=== PATIENT | male | born 1995 | race Caucasian/White ===

== ENCOUNTER 2019-06-21 07:13 | Emergency (ER) | payer OTHER, SELFPAY ==
--- NOTE | ~2019-06-21 | CT_ITS ---
EXAMINATION: CT abdomen pelvis w con INDICATION: Right lower quadrant pain and nausea TECHNIQUE: Computed tomographic images of the abdomen and pelvis were obtained after the administrati on of 100 cc of Omnipaque 350 intravenous contrast. The dose-length product (DLP) was 328.40 mGy-cm. Automated exposure control and iterative reconstruction technique were employed. COMPARISON: None available FINDINGS: The lung bases are clear. The heart size is normal. The liver, spleen, pancreas, gallbladde r, and adrenal glands are normal. There appears to be subtle patchy perfusion of the right kidney com pared to the left with urothelial enhancement of the proximal right ureter. There is a 1 mm stone in the urinary bladder. No pathologically enlarged abdominal or pelvic lymph nodes are identified. There is no free intraperitoneal gas or evidence of bowel obstruction. There are appendicoliths in the dis maynor appendix. The appendix measures up to 7 mm. No definite periappendiceal fat stranding is identifi ed. There are no pelvic fluid collections. IMPRESSION: 1. 1 mm stone in the bladder. Right-sided kidney and ureter findings likely reflect recent passage of stone. 2. Appendicoliths of the appendix without findings of acute appendicitis. These findings were discussed with Dr. Thad Olvera MD in the Emergency Department at 0839 rafita rs on 06/21/2019. Reviewed, dictated and finalized at location A. COUNSELOR IMPRESSION: 1. 1 mm stone in the bladder. Right-sided kidney and ureter findings likely ref lect recent passage of stone. 2. Appendicoliths of the appendix without findings of acute appendicitis. These findings were discussed with Dr. Thad Olvera MD in the Emergency Department at 0839 hours on 06/21/2019.
[2019-06-21 07:25] VITALS: BP 151/80; PULSE 80; RESP 16; TEMP 36.4; O2SAT 100
--- NOTE | 2019-06-21 07:27 | ED.ABDPAIN ---
HPI - Abdominal Pain General Chief Complaint: Abdominal Pain Stated Complaint: abd pain Time Seen by Provider: 06/21/19 07:23 History of Present Illness HPI narrative: RLQ pain since waking up this morning. 8/10 in severity. Feels dull. radiates throughout the abdomen. Made worse by movement. Associated with nausea. He has never had this pain before. No medical problems. No previous surgeries. Related Data Home Medications Medication Instructions Recorded Confirmed cetirizine [Zyrtec] 10 mg PO DAILY 06/21/19 06/21/19 Allergies Allergy/AdvReac Type Severity Reaction Status Date / Time No Known Allergies Allergy Verified 06/21/19 07:27 Review of Systems Review of Systems: All systems reviewed & are unremarkable except as noted in HPI and below Constitutional: Constitutional: Reports chills Cardiovascular: Cardiovascular: Denies chest pain Respiratory: Respiratory: Denies dyspnea Gastrointestinal: Gastrointestinal: Reports abdominal pain, Denies constipation, Denies diarrhea, Reports nausea and Denies vomiting Genitourinary: Genitourinary: Denies dysuria Musculoskeletal: Musculoskeletal: Denies back pain Exam Const: General: alert and ill appearing acutely Nutritional Appearance: well nourished Orientation/consciousness: patient oriented x3 Limitations: no limitations HENMT: Head: normal to inspection Resp: Effort & Inspection: normal respiratory effort Auscultation: clear to auscultation bilaterally Cardio: Rate: regular rate Rhythm: regular rhythm GI: Inspection: non-distended GI Palp: Yes Tenderness to palpation present (GI) (RLQ), Yes Guarding due to palpation present (GI), No Rigid due to palpation and No Rebound tenderness present Skin: General skin exam: normal color Neuro: General: patient oriented x3 and moves all extremities Speech: normal speech Extrem: General: normal to inspection Course Vital Signs Vital signs: Vital Signs Temperature 36.4 C L 06/21/19 07:25 Pulse Rate 80 06/21/19 07:25 Respiratory Rate 16 06/21/19 07:25 Blood Pressure 151/80 H 06/21/19 07:25 Pulse Oximetry 100 06/21/19 07:25 Temperature 36.4 C L 06/21/19 07:25 Pulse Rate 80 06/21/19 07:25 Respiratory Rate 16 06/21/19 07:25 Blood Pressure 151/80 H 06/21/19 07:25 Pulse Oximetry 100 06/21/19 07:25 MDM - Abdominal Pain Differential Diagnosis Differential diagnosis: Likely abdominal pain, acute appendicitis, calculus of kidney, gastroenteritis and pancreatitis Medical Records Attestation: I reviewed the patient's medical records. Lab Data Attestation: I reviewed the patient's lab results. Result diagrams: 06/21/19 07:37 06/21/19 07:52 Labs: Lab Results 06/21/19 06/21/19 06/21/19 Range/Units 07:37 07:37 07:52 WBC 8.6 (4.5-10.0) K/mm3 RBC 4.88 (4.6-6.20) M/mm3 Hgb 15.4 (14.0-18.0) g/dL Hct 45.0 (42.0-52.0) % MCV 92.2 (80-100) fl MCH 31.6 (26-34) pg MCHC 34.2 (32-36) g/dl RDW 12.0 (11.5-14.5) % Plt Count 298 (150-375) k/mm3 MPV 10.1 (7.4-10.4) fl Immature Gran % (Auto) 0.3 (0-0.5) % Neut % (Auto) 39.6 L (45.5-73.1) % Lymph % (Auto) 45.2 H (18.3-44.2) % Lassen % (Auto) 8.1 (2.6-8.5) % Eos % (Auto) 5.9 H (0-4.4) % Baso % (Auto) 0.9 (0.2-1.2) % Lymph # (Auto) 3.90 H (0.9-3.2) K/mm3 Lassen # (Auto) 0.7 H (0.1-0.6) K/mm3 Eos # (Auto) 0.5 H (0-0.3) K/mm3 Baso # (Auto) 0.1 (0.0-0.1) K/mm3 Abs Immat Gran (auto) 0.03 (0.00-0.031) K/mm3 Absolute Neuts (auto) 3.4 (1.3-6.7) K/mm3 Absolute Nucleated RBC 0.0 (0.0-0.012) K/mm3 Nucleated RBC % 0.0 (0.0-0.2) % Sodium 139 (137-145) mmol/L Potassium 3.5 (3.4-5.0) mmol/L Chloride 101 (98-107) mmol/L Carbon Dioxide 22 (22-30) mmol/L BUN 16 17 (9-20) mg/dL Creatinine 1.00 1.10 (0.7-1.3) mg/dL Estim Creat Clear Calc 115 105 ml/min Estimated GFR > 60 > 60 (
[2019-06-21] MEDS: ONDANSETRON INJ 4 MG/2 ML VIAL IV PUSH (07:35)
[2019-06-21] MEDS: SODIUM CHLORIDE 0.9% IV 1,000 ML 999 ML IV CONT (07:36)
[2019-06-21 07:45] LABS: Basophils Absolute Auto 0.1 K/mm3 (0.0-0.1); Basophils Percent Auto 0.9 % (0.2-1.2); Eosinophils Absolute Auto 0.5 K/mm3 (0-0.3); Eosinophils Percent Auto 5.9 % (0-4.4); Hemoglobin 15.4 g/dL (14.0-18.0); Immature Granulocyte Absolute 0.03 K/mm3 (0.00-0.031); Immature Granulocyte Percent A 0.3 % (0-0.5); Lymphocytes Percent Auto 45.2 % (18.3-44.2); Mean Corpuscular HGB Conc 34.2 g/dl (32-36); Mean Corpuscular Hemoglobin 31.6 pg (26-34); Mean Corpuscular Volume 92.2 fl (80-100); Mean Platelet Volume 10.1 fl (7.4-10.4); Monocytes Absolute Auto 0.7 K/mm3 (0.1-0.6); Monocytes Percent Auto 8.1 % (2.6-8.5); Neutrophils Absolute Auto 3.4 K/mm3 (1.3-6.7); Neutrophils Percent Auto 39.6 % (45.5-73.1); Platelet Count Result 298 k/mm3 (150-375); Red Blood Count 4.88 M/mm3 (4.6-6.20); White Blood Count 8.6 K/mm3 (4.5-10.0)
[2019-06-21 07:54] LABS: Blood Urea Nitrogen 17 mg/dL (8-26); Estimated CRCL calculation 105 ml/min; Estimated Glomerular Filt Rate > 60
[2019-06-21 07:57] LABS: Alanine Aminotransferase 21 U/L (4-50); Albumin Level 4.6 g/dL (3.5-5.1); Alkaline Phosphatase 78 U/L (38-126); Aspartate Amino Transferase 23 U/L (17-59); Bilirubin,Total 0.7 mg/dL (0.2-1.3); Blood Urea Nitrogen 16 mg/dL (9-20); Calcium 9.2 mg/dL (8.4-10.2); Carbon Dioxide 22 mmol/L (22-30); Chloride 101 mmol/L (98-107); Estimated CRCL calculation 115 ml/min; Estimated Glomerular Filt Rate > 60; Glucose 125 mg/dL (75-110); Lipase 58 U/L (23-300); Potassium 3.5 mmol/L (3.4-5.0); Sodium 139 mmol/L (137-145)
[2019-06-21 08:27] LABS: Add Urine Microscopic? YES; Appearance Urine Clear (Clear); Bilirubin Urine Negative (Negative); Blood Urine 3+ (Negative); Color Urine Yellow (Yellow); Glucose Urine UA Negative (Negative); Ketones Urine Negative (Negative); Leukocyte Esterase Ur Negative LEU/UL (Negative); Mucus Urine Few /lpf; Nitrate Urine Negative (Negative); Protein Urine Negative (Negative); RBC Urine >75 /hpf (0-2); Urobilinogen Urine Negative mg/dL (<2.0); WBC Urine 0-3 /hpf
[2019-06-21 08:34] LABS: Specific Grav Ur 1.057 (1.001-1.035)
[2019-06-21 09:56] VITALS: BP 136/74; PULSE 82; RESP 18; O2SAT 100
--- NOTE | 2019-06-23 07:34 | PC.NURSE ---
LATE ENTRY This note is being entered to document information to the patient's record. The following information was omitted on [06/21/19]. ns bolus infused at 0827.
== END 2019-06-21 09:57 | disposition home or self-care (01) ==
PROVIDERS: Emergency Provider Emergency Medicine
DX: N20.0 Calculus of kidney (principal)
CPT/HCPCS: 36415; 74177; 80053; 81001; 83690; 85025; 96361; 96374; 96375; 99284; J2405; J3010; J7030; Q9967